=== PATIENT | female | born 2000 | race Caucasian/White ===

== ENCOUNTER 2021-11-02 11:12 | Day surgery (SDC) | payer OTHER ==
[2021-10-26 10:42] VITALS: BMI 22.8
[2021-11-02 12:32] VITALS: TEMP 97.8
[2021-11-02 13:02] VITALS: BP 108/64; PULSE 78
== END 2021-11-02 13:02 | disposition home or self-care (01) ==
LOC: FASU-ENDO 11:12
PROVIDERS: ATTEND Internal Medicine Gastroenterology
PROC: 0DJD8ZZ Inspection of Lower Intestinal Tract, Via Natural or Artificial Opening Endoscopic (ICD-10-PCS; principal; 2021-11-02 12:05)
DX: K92.1 Melena (principal); K64.1 Second degree hemorrhoids
CPT/HCPCS: 84703